=== PATIENT | female | born 1940 | race Caucasian/White ===

== ENCOUNTER → 2016-04-18 | Outpatient (CLI) | payer OTHER ==
[~2016-04-18] VITALS: Ht 157.5 cm; Wt 59.0 kg
[~2016-04-18] MED LIST: ACET325T9 PO; LIDOCAINE 1% / SOD BICARB 8.4% 20 ML VIAL. IJ ONE; LIDOCAINE 2%/EPI 1:100,000 20 ML VIAL. IJ ONE; LOSA25TA4 PO; TRAM-29 PO
[2016-04-18 08:13] VITALS: BP 144/66
--- NOTE | 2016-04-18 11:02 | RAD ---
Indication indeterminate calcifications right breast. Note is made of the screening examination 02/04/2016 and the diagnostic examination 02/17/2016. Indeterminate calcifications were identified on those examinations in the right breast for which biopsy had been recommended. Those images were reviewed. Image guided biopsy was discussed with the patient. The risks of infection and bleeding were outlined. The patient is at the risks associated with the procedure and wished she. The patient was placed prone on the biopsy table. The suspect calcifications were identified and targeted. The skin was prepped and draped in the routine fashion. Local anesthesia was accomplished with 1% lidocaine. Deeper anesthesia was obtained with lidocaine epinephrine. Biopsy probe was introduced. Samples were obtained. Specimen radiograph was performed. 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 A clip was placed at the biopsy site. Post biopsy clip placement images were obtained. No significant residual calcifications persist at the biopsy site. The clip appears appropriately positioned. The patient tolerated the procedure unremarkably. At the completion of the procedure the biopsy site was dressed in the routine fashion and the patient discharged with appropriate instructions. IMPRESSION: Successful stereotactic biopsy suspect calcifications right breast
--- NOTE | 2016-04-18 16:07 | RAD ---
Indication indeterminate calcifications right breast. Note is made of the screening examination 02/04/2016 and the diagnostic examination 02/17/2016. Indeterminate calcifications were identified on those examinations in the right breast for which biopsy had been recommended. Those images were reviewed. Image guided biopsy was discussed with the patient. The risks of infection and bleeding were outlined. The patient is at the risks associated with the procedure and wished she. The patient was placed prone on the biopsy table. The suspect calcifications were identified and targeted. The skin was prepped and draped in the routine fashion. Local anesthesia was accomplished with 1% lidocaine. Deeper anesthesia was obtained with lidocaine epinephrine. Biopsy probe was introduced. Samples were obtained. Specimen radiograph was performed. Abundant signs and displays sales representative microcalcifications were retrieved. A clip was placed at the biopsy site. Post biopsy clip placement images were obtained. No significant residual calcifications persist at the biopsy site. The clip appears appropriately positioned. The patient tolerated the procedure unremarkably. At the completion of the procedure the biopsy site was dressed in the routine fashion and the patient discharged with appropriate instructions. IMPRESSION: Successful stereotactic biopsy suspect calcifications right breast DICTATED and SIGNED BY: TOMASA MADRID MD DATE: 04/18/16 1056 [facility]
--- NOTE | 2016-04-19 16:17 | PATHOLOGY ---
PATHOLOGY REPORT * * * * * * * * FINAL DIAGNOSIS: Breast tissue, right breast core biopsies: - Ancient fibroadenoma, with associated calcifications. - Focal stromal fibrosis and mild duct ectasia. COMMENT: Sections of the right breast core biopsies reveal multiple segments of an ancient fibroadenoma with associated calcifications. The fibroadenoma measures up to 0.5-0.6 cm in greatest dimension on the glass slide. There is no evidence of malignancy. (JPM:mgmickey; d/t: 04/19/16) REPORT ELECTRONICALLY SIGNED BY: Johnie Santos M.D. DATE/TIME: 04/19/2016 16:17 * * * * * * * * GROSS PATHOLOGY: Received in an orange plastic cassette in formalin labeled "Sofía Ba and right breast tissue," are multiple needle cores of yellow-huizar fibrofatty tissue measuring 7.4 x 1.7 x 0.8 cm in aggregate dimensions. The tissue is submitted in its entirety in cassettes A1-A4. The cold ischemic time is 7 minutes. The total formalin fixation time is 10 hours and 47 minutes. (TTL; 04/18/2016) INITIAL CPT CODE(S): A; 84892 Professional services performed [place] [employer] [address] Technical services performed by [facility] at [address] [place] [address] [address] [place] [address]. SPECIMEN(S) RECEIVED: A.Right breast tissue CLINICAL HISTORY: Calcifications PATIENT: SOFÍA BA /AGE: 11 1940 (Age: 76) PATIENT #: [id number] ALT CASE #: SPECIMEN COLLECTION DATE: 04/18/2016 SPECIMEN RECEIVED DATE: 04/18/2016 [facility] - [address] [place] [address] - PHONE: [phone] * * * END OF REPORT * * *
== END | disposition home or self-care (01) ==
LOC: MAMMO 07:28
PROVIDERS: ATTEND Internal Medicine
DX: R92.8 Other abnormal and inconclusive findings on diagnostic imaging of breast (principal); R92.0 Mammographic microcalcification found on diagnostic imaging of breast
CPT/HCPCS: 19085; 77022; C1713; G0206; J3490

== ENCOUNTER → 2017-07-08 | Outpatient (CLI) | payer OTHER | END | disposition home or self-care (01) | LOC: ECHO 13:36 | DX: I27.20 Pulmonary hypertension, unspecified (principal) | CPT/HCPCS: 93306 ==

== ENCOUNTER → 2017-10-22 | Outpatient (CLI) | payer OTHER ==
[2017-10-22] MEDS: REGADENOSON 0.4 MG/5 ML DISP.SYRIN. IV (08:50)
== END | disposition home or self-care (01) ==
LOC: NM 12:35
DX: R00.2 Palpitations (principal); R61 Generalized hyperhidrosis; I10 Essential (primary) hypertension
CPT/HCPCS: 78452; 93017; 96374; 96375; 96376; A9500; J2785

== ENCOUNTER 2018-11-20 04:35 | Emergency (ER) | payer OTHER ==
[~2018-11-20] VITALS: Ht 157.5 cm; Wt 56.7 kg
[~2018-11-20 04:35] MED LIST changes: -LIDOCAINE 1% / SOD BICARB 8.4% 20 ML VIAL. IJ ONE; -LIDOCAINE 2%/EPI 1:100,000 20 ML VIAL. IJ ONE; -LOSA25TA4 PO; +LOSA25TA54 PO; -TRAM-29 PO; +TRAM-48 PO
[2018-11-20] MEDS ORDERED: IV NORMAL SALINE 1000ML BAG 1,000 ML IV ONE (05:30)
--- NOTE | 2018-11-20 05:32 | PHYS DOC ---
Past Medical History Past Medical History: Other Additional Past Medical Histor: Trigeminal nerve, Was HTN and no longer takes medication Past Surgical History: Appendectomy, Cholecystectomy, Other Additional Past Surgical Histo: Back surgery,Trigeminal Neurology,L)eye corrected muscle. Alcohol Use: None Drug Use: None Adult General Chief Complaint Chief Complaint: MULTIPLE COMPLAINTS HPI HPI Patient is a 78 year old female who presents with complaining of not feeling go od. Patient state for the last 2 days she has had generalized weakness and not feeling good and had constant nausea without vomiting. Patient complaining of 4- 5 episodes of loose stool every day and lower abdominal aching and constant pain with radiation to her back. Patient states she had generalized weakness with chills and headache. Patient states her appetite was okay yesterday but today she did not have appetite. Patient denies urinary symptoms, chest pain, sick contact, fever. Review of Systems Review of Systems Constitutional: Denies fever Eyes: Denies change in visual acuity, redness, or eye pain [] HENT: Denies nasal congestion or sore throat [] Respiratory: Denies cough or shortness of breath [] Cardiovascular: No additional information not addressed in HPI [] GI: Reports abdominal pain, nausea, diarrhea [] : Denies dysuria or hematuria [] Musculoskeletal: Denies back pain or joint pain [] Integument: Denies rash or skin lesions [] Neurologic: Denies headache, focal weakness or sensory changes [] Endocrine: Denies polyuria or polydipsia [] All other systems were reviewed and found to be within normal limits, except as documented in this note. Current Medications Current Medications Current Medications Medications (Trade) Dose Ordered Sig/[facility] Start Time Stop Time Status Last Admin Dose Admin Ondansetron HCl (Zofran) 4 mg 1X ONCE 11/20/18 05:45 11/20/18 05:46 DC 11/20/18 05:42 4 MG Sodium Chloride 1,000 ml @ 125 mls/hr 1X ONCE 11/20/18 05:30 11/20/18 13:29 11/20/18 05:42 125 MLS/HR Allergies Allergies Allergies Coded Allergies Type Severity Reaction Last Updated Verified No Known Drug Allergies 09/16/14 No Physical Exam Physical Exam Constitutional: Mild acute distress, non-toxic appearance. [] HENT: Normocephalic, atraumatic, oropharynx dry, no oral exudates, nose normal. [] Eyes: PERRLA, EOMI, conjunctiva normal, no discharge. [] Neck: Normal range of motion, no tenderness, supple, no stridor. [] Cardiovascular:Heart rate regular rhythm, no murmur [] Lungs & Thorax: Bilateral breath sounds clear to auscultation [] Abdomen: Bowel sounds normal, soft, no tenderness, no masses, no pulsatile masses. [] Skin: Warm, dry, no erythema, no rash. [] Back: No tenderness, no CVA tenderness. [] Extremities: No tenderness, no cyanosis, no clubbing, ROM intact, no edema. [] Neurologic: Alert and oriented X 3, normal motor function, normal sensory function, no focal deficits noted. [] Psychologic: Affect normal, judgement normal, mood normal. [] Current Patient Data Vital Signs Vital Signs Date Time Temp Pulse Resp B/P (MAP) Pulse Ox O2 Delivery O2 Flow Rate FiO2 11/20/18 05:48 60 18 154/63 (93) 97 Room Air 11/20/18 04:54 97.7 97.7 Lab Values Laboratory Tests Test 11/20/18 05:20 White Blood Count 7.3 x10^3/uL (4.0-11.0) Red Blood Count 4.47 x10^6/uL (3.50-5.40) Hemoglobin 13.3 g/dL (12.0-15.5) Hematocrit 39.0 % (36.0-47.0) Mean Corpuscular Volume 87 fL (79-100) Mean Corpuscular Hemoglobin 30 pg (25-35) Mean Corpuscular Hemoglobin Concent 34 g/dL (31-37) Red Cell Distribution Width 12.9 % (11.5-14.5) Platelet Count 186 x10^3/uL (140-400) Neutrophils (%) (Auto) 79 % (31-73) H Lymphocytes (%) (Auto) 14 % (24-48) L Monocytes (%) (Auto) 7 % (0-9) Eosinophils (%) (Auto) 1 % (0-3) Basophils (%) (Auto) 0 % (0-3) Neutrophils # (Auto) 5.8 x10^3/uL (1.8-7.7) Lymphocytes # (Auto) 1.0 x10^3/uL (1.0-4.8) Monocytes # (Auto) 0.5 x10^3/uL (0.0-1.1) Eosinophils # (Auto) 0.1 x10^3/uL (0.0-0.7) Basophils # (Auto) 0.0 x10^3/uL (0.0-0.2) Sodium Level 132 mmol/L (136-145) L Potassium Level 3.9 mmol/L (3.5-5.1) Chloride Level 97 mmol/L (98-107) L Carbon Dioxide Level 28 mmol/L (21-32) Anion Gap 7 (6-14) Blood Urea Nitrogen 15 mg/dL (7-20) Creatinine 0.7 mg/dL (0.6-1.0) Estimated GFR (Cockcroft-Gault) 80.9 BUN/Creatinine Ratio 21 (6-20) H Glucose Level 110 mg/dL (70-99) H Calcium Level 9.6 mg/dL (8.5-10.1) Total Bilirubin 0.6 mg/dL (0.2-1.0) Aspartate Amino Transferase (AST) 18 U/L (15-37) Alanine Aminotransferase (ALT) 19 U/L (14-59) Alkaline Phosphatase 46 U/L (46-116) Creatine Kinase 51 U/L (26-192) Troponin I Quantitative < 0.017 ng/mL (0.000-0.055) Total Protein 6.7 g/dL (6.4-8.2) Albumin 3.5 g/dL (3.4-5.0) Albumin/Globulin Ratio 1.1 (1.0-1.7) Lipase 165 U/L (73-393) Laboratory Tests 11/20/18 05:20 Laboratory Tests 11/20/18 05:20 EKG EKG [] Radiology/Procedures Radiology/Procedures [] Course & Med Decision Making Course & Med Decision Making Pertinent Labs and Imaging studies reviewed. (See chart for details) Evaluation of patient in ER showed 78-year-old male patient with complaining of episodes of nausea and diarrhea and abdominal pain for the last 2 days with generalized weakness and headache. Labs and CT abdomen and pelvis is pending. Sign out given to at 0600 for further evaluation and final disposition. Discussed current findings and plan with patient and family, who acknowledge understanding and agreement. Dragon Disclaimer Dragon Disclaimer This electronic medical record was generated, in whole or in part, using a voice recognition dictation system. Departure Departure Impression: Primary Impression: Acute gastroenteritis Referrals: JOSE ALFREDO CASTILLO Jr, MD (PCP) ASHOK SALMON MD Nov 20, 2018 05:32
[2018-11-20 05:40] LABS: CALCIUM 9.6 mg/dL (8.5-10.1); CREATININE 0.7 mg/dL (0.6-1.0)
[2018-11-20 05:41] LABS: GFR 80.9; POTASSIUM 3.9 mmol/L (3.5-5.1)
[2018-11-20] MEDS ORDERED: ONDANSETRON PF 4 MG/2 ML VIAL. IV ONE (05:45)
[2018-11-20 05:47] LABS: ALBUMIN 3.5 g/dL (3.4-5.0); ALBUMIN/GLOBULIN RATIO 1.1 (1.0-1.7); TOTAL BILIRUBIN 0.6 mg/dL (0.2-1.0); TOTAL PROTEIN 6.7 g/dL (6.4-8.2)
[2018-11-20 05:48] LABS: BASO % 0 % (0-3); EOS # 0.1 x10^3/uL (0.0-0.7); EOS % 1 % (0-3); HEMOGLOBIN 13.3 g/dL (12.0-15.5); LYMPH % 14 % (24-48); MEAN CORPUSCULAR HEMOGLOBIN 30 pg (25-35); MEAN CORPUSCULAR HGB CONC 34 g/dL (31-37); MEAN CORPUSCULAR VOLUME 87 fL (79-100); MONO # 0.5 x10^3/uL (0.0-1.1); MONO % 7 % (0-9); NEUT # 5.8 x10^3/uL (1.8-7.7); NEUT % 79 % (31-73); PLATELET COUNT 186 x10^3/uL (140-400); RED BLOOD COUNT 4.47 x10^6/uL (3.50-5.40); RED CELL DISTRIBUTION WIDTH 12.9 % (11.5-14.5); WHITE BLOOD COUNT 7.3 x10^3/uL (4.0-11.0)
[2018-11-20] MEDS ORDERED: CONTRAST GIVEN. MC PRN (06:30)
[2018-11-20] MEDS ORDERED: IOHEXOL 240 MG/ML 50ML VIAL. PO ONE (06:30)
[2018-11-20] MEDS ORDERED: IOHEXOL 300 MG/ML 100ML VIAL. IV ONE (06:30)
[2018-11-20 06:37] LABS: BILIRUBIN,URINE NEGATIVE (NEG); CLARITY,URINE CLEAR; COLOR,URINE YELLOW; NITRITE,URINE NEGATIVE (NEG); PROTEIN,URINE NEGATIVE (NEG-TRACE); UROBILINOGEN,URINE 0.2 mg/dL (0.2 mg/dL)
[2018-11-20 06:44] LABS: BACTERIA,URINE FEW /HPF (0-FEW); HYALINE CASTS, URINE FEW /HPF; SQUAMOUS EPITHELIAL CELL,UR MOD /LPF; WBC,URINE 0 /HPF (0-4)
--- NOTE | 2018-11-20 07:45 | RAD ---
Exam: CT abdomen and pelvis with contrast INDICATION: Nausea, vomiting and weakness TECHNIQUE: Sequential axial images through the abdomen and pelvis obtained following the administration of 75 mL of Omni 300 IV contrast. Sagittal and coronal reformatted images were reconstructed from the axial data and reviewed. Comparisons: CT 11/29/2007 FINDINGS: Heart size is normal. No pericardial effusion. Visualized lung bases are clear. No pleural effusion. Stable hypoattenuating cystic lesion at the left hepatic dome likely representing simple cysts. Otherwise, liver, spleen, pancreas, and adrenals are unremarkable. Gallbladder surgically absent. Mild intrahepatic ductal dilatation, likely biliary reservoir which is stable. Kidneys demonstrate symmetric enhancement. No perinephric inflammation or hydronephrosis. There is 2 mm nonobstructing renal calculus at the lower pole of the right kidney. No ureteral calculi. Bladder is distended and appears thin-walled. Uterus is not enlarged. No abnormal adnexal mass. Diverticulosis probably within the sigmoid colon. Mild bowel thickening noted at the sigmoid colon. Remainder of the large and small bowel are unremarkable. No obstruction. No free intra-abdominal air or fluid. Abdominal aorta has a normal course and caliber. Calcified carotid plaque circumferentially in the infrarenal abdominal aorta. Abdominal vasculature is patent. No enlarged intra-abdominal lymph nodes are identified. No suspicious osseous lesions or acute fractures. IMPRESSION: 1. Diverticulosis of the sigmoid colon with mild bowel wall thickening which may represent mild diverticulitis. 2. Nonobstructing 2 mm calculus at the lower pole of the right kidney. 3. Postsurgical changes cholecystectomy. Exposure: One or more of the following in the visualized dose reduction techniques were utilized for this examination: 1. Automated exposure control 2. Adjustment of the MA and/or KV according to patient size 3. Use of iterative of reconstructive technique Electronically signed by: Abdirizak Larsen MD (11/20/2018 7:42 AM) [facility]
[2018-11-20] MEDS ORDERED: HYDROcodone/APAP 5/325MG 1 TAB TABLET PO ONE (08:00)
[2018-11-20] MEDS ORDERED: SULF1TAB24 PO (08:09)
[2018-11-20 08:11] VITALS: BP 134/65
[2018-11-20] MEDS ORDERED: SMZ/TMP 800/160MG TABLET. PO ONE (08:30)
== END 2018-11-20 08:46 | disposition home or self-care (01) ==
LOC: ER 04:35
DX: K52.9 Noninfective gastroenteritis and colitis, unspecified (principal); Z90.49 Acquired absence of other specified parts of digestive tract; Z90.89 Acquired absence of other organs; Z98.890 Other specified postprocedural states
CPT/HCPCS: 36415; 74177; 80053; 81001; 82550; 83690; 84484; 85025; 96361; 96374; 99285; J2405; J7030; Q9966; Q9967

== ENCOUNTER → 2019-11-25 | Outpatient (CLI) | payer MEDICARE, OTHER ==
[~2019-11-25] MED LIST changes: +SULF1TAB24 PO
--- NOTE | 2019-11-25 13:19 | RAD ---
History: Reason: B/L LEG PAIN / Spl. Instructions: / History: Technique: Ultrasound was utilized to calculate an ankle brachial index. Findings: Right: Right brachial pressure 172 mmHg Right ankle pressure 179 mmHg Right ankle SIENNA 1.0 Left: Left brachial pressure 164 mmHg Left ankle pressure 169 mmHg Left ankle SIENNA is 1.0 Impression: Normal ankle brachial index bilaterally. Electronically signed by: Magdaleno Darnell MD (11/25/2019 1:15 PM) [id number]
== END | disposition home or self-care (01) ==
LOC: US 12:24
PROVIDERS: ATTEND Family Medicine
DX: M79.605 Pain in left leg (principal); M79.604 Pain in right leg
CPT/HCPCS: 93922

== ENCOUNTER 2020-10-08 11:51 | Emergency (ER) | payer MEDICARE ==
--- NOTE | 2020-10-11 08:41 | PHYS DOC ---
Past Medical History Past Medical History: Other Additional Past Medical Histor: Trigeminal nerve, Was HTN and no longer takes medication Past Surgical History: Appendectomy, Cholecystectomy, Other Additional Past Surgical Histo: Back surgery,Trigeminal Neurology,L)eye corrected muscle. Smoking Status: Never Smoker Alcohol Use: None Drug Use: None General Adult EDM: Chief Complaint: LOWER EXT PAIN HPI: HPI: 80-year-old female past medical history significant for hypertension presents the ED with her daughter, (patient consents to his/her/their knowledge and involvement in pts' medical care), with complaints of left buttock pain that radiates down to her left foot for the past 6 days. Reprots Review of Systems: Review of Systems: Constitutional: Denies fever or chills. [] Eyes: Denies change in visual acuity. [] HENT: Denies nasal congestion or sore throat. [] Respiratory: Denies cough or shortness of breath. [] Cardiovascular: Denies chest pain or edema. [] GI: Denies abdominal pain, nausea, vomiting, bloody stools or diarrhea. [] : Denies dysuria. [] Musculoskeletal: Denies back pain or joint pain. [] Integument: Denies rash. [] Neurologic: Denies headache, focal weakness or sensory changes. [] Endocrine: Denies polyuria or polydipsia. [] Lymphatic: Denies swollen glands. [] Psychiatric: Denies depression or anxiety. [] Heart Score: C/O Chest Pain: No Risk Factors: Risk Factors: DM, Current or recent (<one month) smoker, HTN, HLP, family history of CAD, obesity. Risk Scores: Score 0 - 3: 2.5% MACE over next 6 weeks - Discharge Home Score 4 - 6: 20.3% MACE over next 6 weeks - Admit for Clinical Observation Score 7 - 10: 72.7% MACE over next 6 weeks - Early Invasive Strategies Allergies: Allergies: Allergies Coded Allergies Type Severity Reaction Last Updated Verified No Known Drug Allergies 09/16/14 No Physical Exam: PE: Constitutional: Well developed, well nourished, no acute distress, non-toxic appearance. [] HENT: Normocephalic, atraumatic, bilateral external ears normal, oropharynx moist, no oral exudates, nose normal. [] Eyes: PERRLA, EOMI, conjunctiva normal, no discharge. [] Neck: Normal range of motion, no tenderness, supple, no stridor. [] Cardiovascular:Heart rate regular rhythm, no murmur [] Lungs & Thorax: Bilateral breath sounds clear to auscultation [] Abdomen: Bowel sounds normal, soft, no tenderness, no masses, no pulsatile masses. [] Skin: Warm, dry, no erythema, no rash. [] Back: No tenderness, no CVA tenderness. [] Extremities: No tenderness, no cyanosis, no clubbing, ROM intact, no edema. [] Neurologic: Alert and oriented X 3, normal motor function, normal sensory function, no focal deficits noted. [] Psychologic: Affect normal, judgement normal, mood normal. [] EKG: EKG: [] Radiology/Procedures: Radiology/Procedures: [] Course & Med Decision Making: Course & Med Decision Making Pertinent Labs and Imaging studies reviewed. (See chart for details) I was not involved in this patients' care. Chart accidentally assigned to me at shift change. Diaz Disclaimer: Diaz Disclaimer: This electronic medical record was generated, in whole or in part, using a voice recognition dictation system. Departure Departure Impression: Primary Impression: Patient left without being seen Disposition: 07 LEFT WITHOUT BEING SEEN Condition: LEFT WITHOUT BEING SEEN JITENDRA BERMUDEZ DO Oct 11, 2020 08:41
[2020-10-11] MEDS ORDERED: HYDROcodone/APAP 5/325MG 1 TAB TABLET PO ONE (08:45)
[2020-10-11 10:13] LABS: BILIRUBIN,URINE NEGATIVE (NEG); CLARITY,URINE CLEAR; COLOR,URINE YELLOW; NITRITE,URINE NEGATIVE (NEG); PH,URINE 7.5 (<5.0-8.0); PROTEIN,URINE NEGATIVE (NEG-TRACE); UROBILINOGEN,URINE 0.2 mg/dL (0.2 mg/dL)
[2020-10-11 10:29] LABS: AMORPHOUS SEDIMENT,UR PRESENT /HPF; BACTERIA,URINE FEW /HPF (0-FEW)
[2020-10-11] MEDS ORDERED: CARV6.2511 PO (12:31)
== END 2020-10-08 12:05 | disposition left against medical advice (07) ==
LOC: ER 11:51
DX: M79.605 Pain in left leg (principal); Z53.21 Procedure and treatment not carried out due to patient leaving prior to being seen by health care provider
CPT/HCPCS: 73502; 81001

== ENCOUNTER → 2020-10-24 | Outpatient (CLI) | payer MEDICARE ==
[2020-10-12 11:00] VITALS: BP 150/63
[~2020-10-24] MED LIST changes: +CALC625T20 PO; +CARV6.2511 PO; +DEXA4TAB63 PO; +HYDR-2761 PO; +IBUP400T99 PO; +LACT1CAP39 PO; +OXYC-325 PO
--- NOTE | 2020-10-24 14:53 | PDOC1 ---
INITIAL PAIN CONSULT DATE OF SERVICE: DOS: DATE: 10/24/20 TIME: 14:46 CHIEF COMPLAINT: Chief Complaint: Low back and left lower extremity pain HISTORY OF PRESENT ILLNESS: 80-year-old female presents history of pain low back left lower extremity for about 2 months not the result of any specific injury or accident that she is aware of but is beginning worse with time standing walking changing positions awakens her from sleep least once or twice a night patient reports effective bowel bladder control but no incontinence is some increased frequency patient reports does affect her ability to walk and she has a cane that she uses but does not have it with her today. Patient reports she has been using exercise strengthening stretching has had physical therapy in the past she had previous lumbar surgery in 2011 and is doing the physical therapy exercises from that surgery patient reports it helps but only minimally patient is taking hydrocodone with acetaminophen also decrease the pain by about 20% patient reports pain is stabbing and shooting in the leg numb and tingling in the leg as well as aching and cramping in the low back and some cramping in the legs well patient reports is rating the posterior gluteus lateral thigh anterior thigh posterior thigh posterior calf and anterior calf to the ankle and top of the foot but not into the toes. Patient reports disability rating 0-10 10 being the worst is a 10 with him home responsibilities recreation social activity occupation self-care and life support activities specially sleeping. Patient did have an MRI scan lumbar spine showing left hemilaminectomy decompression at L3-4 and at L4-5 circumferential disc bulge with moderate left and mild right neuroforaminal stenosis and mild spinal canal stenosis L5-S1 shows cervical disc bulge with a left subarticular zone disc extrusion with left lateral recess stenosis mild spinal canal stenosis mild left neuroforaminal stenosis. Patient reports a loss of motor function with significant fatigability with walking and standing especially even standing for more than 5 minutes on the left leg PAST MEDICAL HISTORY: PMH: Arthritis, hypertension, irritable bowel syndrome PREVIOUS SURGERIES: Past Surgical Hx: Cholecystectomy, LASEK surgery, balloon decompression for trigeminal neuralgia, appendectomy, lumbar laminectomy 2011 CURRENT MEDICATIONS: Current Meds: Active Scripts Medications Dose Route/Sig Max Daily Dose Days Date Category Dose Instructions Probiotic (Lactobacillus Combination No.4) 1 Each Capsule 1 Each PO DAILY 10/24/20 Reported Fiber Tabs (Calcium Polycarbophil) 625 Mg Tablet 625 Mg PO DAILY 10/24/20 Reported Ibu (Ibuprofen) 400 Mg Tablet 1 Tab PO Q4HRS 5 10/24/20 Reported NEEDED FOR PAIN Hydrocodone-Apap 5-325 (Hydrocodone Bit/Acetaminophen) 1 Tab Tablet 1 Tab PO PRN Q6HRS PRN 10/24/20 Reported Carvedilol (Carvedilol) 6.25 Mg Tablet 6.25 Mg PO BIDWMEALS 10/11/20 Reported ALLERGIES; Allergies: Coded Allergies: No Known Drug Allergies (Unverified , 09/16/14) FAMILY HISTORY: Family Hx: No major medical conditions that she is aware of. SOCIAL HISTORY: Social Hx: Patient is nondrug alcohol does not smoke says any illegal illicit recreational drugs is lives locally in [facility] and is currently retired. REVIEW OF SYSTEMS: ROS: Positive for those items mentioned in history of present illness, all systems are reviewed, otherwise negative ,and are complete full and well-documented on patient's chart. PHYSICAL EXAM: VS: Blood pressures 149/69 pulse 73 respirations 18 temperature 98.6 F weight is 133 pounds height is 5 feet 2 inches PE: PHYSICAL EXAMINATION: GENERAL: The patient is awake, alert, oriented, appropriate, very pleasant in demeanor. HEENT: Shows normocephalic, atraumatic. Extraocular movements are intact and symmetrical. Oral cavity: Mucous membranes moist and pink. NECK: Shows anterior throat supple without palpable lymphadenopathy noted. Swallow reflex symmetrical. CHEST: Shows normal on inspection. Breath sounds are clear bilaterally, no rales rhonchi or wheeze. HEART: Shows S1, S2 clear. No murmurs auscultated. ABDOMEN: Soft, nontender, nondistended, obese. No palpable organomegaly is noted. No rebound or guarding demonstrated. BACK: Shows spine grossly in the midline. Normal-appearing cervical lordotic curvature. There is slightly increased thoracic kyphosis, some minor flattening of the lumbar lordotic curvature. Lumbar paraspinous muscles show symmetrical on inspection, on palpation shows some moderate tenderness diffusely throughout the upper, middle and lower distribution of the paraspinous muscles bilaterally, without specific trigger points, without radiation of pain. The patient has good rotational motion of the lumbar spine, both laterally as well as extension and flexion without significant difficulty. No tenderness over the spinous processes, sacrum or sacroiliac regions. EXTREMITIES: Lower extremities show deep tendon reflexes 1+ in the patellar and tendo calcaneus tendons. Motor exam is 5 on a scale of 5 with right dorsiflexion, extension, quadriceps and hamstring flexion and 4/5 on the left. Peripheral pulses are 1 posterior tibial. No peripheral edema is noted bilaterally. Lower extremities are warm and dry to touch, equal in color and appearance. Straight leg raise noted to be positive on the left at approximately 40 degrees decreased with knee flexion, right side is negative. Gaenslen's and Osvaldo's maneuvers are negative bilaterally as well. The patient is able to stand, stand on toes without significant difficulty but is walking with a favoring gait favoring the left extremity not using any assistive devices to ambulate. SKIN: Shows warm and dry, good turgor. No edema. No sores, rashes or bruising throughout. IMPRESSION: Impression: 80-year-old female with approximate 2-month history increasing pain low back left lower extremity radicular fashion. Lumbar spine MRI scan as noted Arthritis Hypertension Irritable bowel syndrome Plan: Options were discussed with patient including conservative medical management physical therapies interventional techniques. Patient would like to pursue interventional techniques. We discussed a lumbar epidural steroid injection using description as well as anatomical models to describe the procedure. Patient is scheduled for lumbar decompression surgery in approximately 2 weeks and we will need to preauthorize patient for the epidural steroid injection. If able to authorize patient prior to the surgery she would like to proceed with this however if closer to the surgery will have her simply proceed with the surgery and follow-up as necessary. NIKI TURNER MD Oct 24, 2020 14:53
== END | disposition home or self-care (01) ==
LOC: PNCL 13:15
PROVIDERS: ATTEND Anesthesiology
DX: M54.5 Low back pain (principal); M79.605 Pain in left leg; M19.90 Unspecified osteoarthritis, unspecified site; I10 Essential (primary) hypertension; Z90.49 Acquired absence of other specified parts of digestive tract; Z98.890 Other specified postprocedural states; Z79.899 Other long term (current) drug therapy; Z87.440 Personal history of urinary (tract) infections
CPT/HCPCS: G0463

== ENCOUNTER → 2020-10-31 | Outpatient (CLI) | payer MEDICARE ==
[2020-10-12 11:00] VITALS: BP 150/63
[~2020-10-31] MED LIST changes: +CARV3.1210 PO; +OXYC-314 PO
--- NOTE | 2020-10-31 10:56 | EKG ---
[facility] [address] [place] [address] Test Date: 2020-10-31 Test Time: 10:56:35 Pat Name: DALE HOLTER Department: Room: Gender: F Lumber Material Handler: : 1940 Requested By: FEI BHAGAT Order Number: [id number] Reading MD: Jeramie Thompson MD Measurements Intervals [place] Rate: 67 P: 57 CA: 164 QRS: -36 QRSD: 82 T: 23 QT: 376 QTc: 400 Interpretive Statements SINUS RHYTHM LAD Electronically Signed On 10-31-2020 20:29:16 CDT by Jeramie Thompson MD
[2020-10-31 11:06] LABS: ALBUMIN 3.4 g/dL (3.4-5.0); ALBUMIN/GLOBULIN RATIO 1.1 (1.0-1.7); CALCIUM 8.8 mg/dL (8.5-10.1); CREATININE 0.6 mg/dL (0.6-1.0); GFR 96.2; POTASSIUM 4.3 mmol/L (3.5-5.1); TOTAL BILIRUBIN 0.5 mg/dL (0.2-1.0); TOTAL PROTEIN 6.5 g/dL (6.4-8.2)
--- NOTE | 2020-11-02 12:32 | PREOP HP ---
DATE OF SERVICE: 11/04/2020 PREOPERATIVE HISTORY AND PHYSICAL HISTORY OF PRESENT ILLNESS: The patient is a pleasant 80-year-old who was seen in the hospital a few weeks ago for severe back and left leg pain. Her problem started a few weeks prior to that abruptly. She notes pain in her lower back, which radiates to her leg, buttock, posterior thigh and leg. She had surgery in the lumbar spine about 10 years ago by me and did very well. Her pain can reach 10/10. She says her pain is 5/10 with medications. She has difficulty walking. She says her pain is constant. She takes hydrocodone to help with her pain. She has not noticed weakness. The problem is pain. There is no problem on the right side. CURRENT MEDICATIONS: Hydrocodone, fiber, probiotic, Coreg. PAST MEDICAL HISTORY: Hypertension. PAST SURGICAL HISTORY: Cholecystectomy, LASIK surgery, lumbar surgery at L3-4 in 2007, appendectomy. FAMILY HISTORY: Noncontributory. SOCIAL HISTORY: Nonsmoker. REVIEW OF SYSTEMS: A 12-point review of systems was performed and is noncontributory except that mentioned above. PHYSICAL EXAMINATION: GENERAL: Alert, pleasant, in no acute distress. HEENT: Head normocephalic, atraumatic. SKIN: Warm and dry. Well healed lumbar incision. MUSCULOSKELETAL: Lumbar paraspinal muscle bulk is normal, restricted range of motion of the lumbar spine, [id number] tenderness of the lower lumbar spine with palpation, normal range of motion of the lower extremities bilaterally. EXTREMITIES: No clubbing, cyanosis or edema. NEUROLOGIC: Alert and oriented x 3. Strength is 5/5 in the lower extremities bilaterally. Sensory was intact to light touch in the lower extremities bilaterally except for decreased sensation in the entire left foot, reflexes were present and symmetric in the lower extremities bilaterally except for an absent left ankle jerk, positive straight leg raising on the left, negative straight leg raising on a right, antalgic gait favoring her left leg. IMAGING: I reviewed a lumbar MRI scan. On that study, there is a large left lateral sequestered disk measuring 1 cm in greatest diameter. The disk occupies the left subarticular zone and extruded inferiorly compressing the left S1 nerve root. There were also postoperative changes at L3-4 on the left. ASSESSMENT AND PLAN: The patient has a significant left lumbar radiculopathy. She has difficulty ambulating. She would strongly like to go ahead with surgery. She has been resting and receiving steroids and has not improved significantly. I did speak with her about the surgery including the technique, the risk and the expected postoperative course. She understands and would like to proceed. SANTO DR: Silvestre TID: [id number]
== END ==
LOC: SURGPAT 09:57
PROVIDERS: ATTEND Neurological Surgery
DX: Z01.818 Encounter for other preprocedural examination (principal); M51.17 Intervertebral disc disorders with radiculopathy, lumbosacral region
CPT/HCPCS: 36415; 80053; 87641; 93005

== ENCOUNTER 2020-11-04 07:21 | Day surgery (SDC) | payer MEDICARE ==
[2020-10-31 10:39] VITALS: BP 203/78
[2020-10-31 10:48] VITALS: BP 182/79
[~2020-11-04] VITALS: Ht 157.5 cm; Wt 60.0 kg
[~2020-11-04 07:21] MED LIST changes: +BUPIVACAINE-EPI 0.5%-1:200000 MPF 30 ML VIAL. ONE; +GELATIN SPONGE SIZE 100. ONE; +HYDROmorphone 2 MG/ML VIAL IVP PRN; +IV RINGERS,LACTATED 1000ML 1,000 ML IV SCH; +KETOROLAC 60 MG/2 ML VIAL. ONE; +MORPHINE SULFATE 2 MG/ML INJ. IVP PRN; +PROCHLORPERAZINE 10 MG/2 ML VIAL. IVP PRN; +THROMBIN TOPICAL 20,000 UNIT SPRAY.SYRN KIT TP ONE; +fentaNYL PF VIAL 100 MCG/2 ML VIAL IVP PRN
[2020-11-04] MEDS ORDERED: PROPOFOL 50 ML IV ONE (07:59)
[2020-11-04] MEDS ORDERED: fentaNYL PF VIAL 100 MCG/2 ML VIAL ONE (07:59)
[2020-11-04] MEDS ORDERED: PHENYLEPHRINE 10 MG/ML VIAL. ONE (07:59)
[2020-11-04] MEDS ORDERED: REMIFENTANIL 1 MG VIAL. IV ONE (07:59)
[2020-11-04] MEDS ORDERED: LIDOCAINE 2% PF 5 ML VIAL. ONE (07:59)
[2020-11-04] MEDS ORDERED: ROCURONIUM 50 MG/5 ML VIAL. ONE (07:59)
[2020-11-04] MEDS ORDERED: PROPOFOL 10 MG/ML (20ML) VIAL. IV ONE (07:59)
[2020-11-04] MEDS ORDERED: 0.9 % SODIUM CHLORIDE 20 ML VIAL. IJ ONE (07:59)
[2020-11-04] MEDS ORDERED: MIDAZOLAM HCL/PF 2 MG/2 ML VIAL. ONE (08:11)
[2020-11-04] MEDS ORDERED: SEVOFLURANE > 120 MINUTES. IH ONE (09:32)
[2020-11-04] MEDS ORDERED: NEOSTIGMINE METHYLSULFATE 5 MG/5 ML SYRINGE. ONE (09:43)
[2020-11-04] MEDS ORDERED: GLYCOPYRROLATE 1 MG/5 ML VIAL. ONE (09:43)
[2020-11-04] MEDS ORDERED: HYDR-2761 PO (10:54)
[2020-11-04] MEDS ORDERED: DOCU-109 PO (10:54)
--- NOTE | 2020-11-04 10:57 | DISCH ---
DISCHARGE INSTRUCTIONS Condition on Discharge Condition on Discharge: Stable Activity After Discharge Activity Instructions for Disc: Activity as tolerated, Avoid exertion Bathing Instructions: Shower-keep dressing dry, No Tub Bath until see Lifting Instructions after Dis: No heavy lifting, No pulling or pushing, Do not lift >10 pounds Exercise Instruction after Dis: Progress as tolerated Driving Instructions after Dis: Do not drive Weight Bearing Status after Di: As tolerated Diet after Discharge Diet after Discharge: Regular Additional Diet Restrictions: resume regualr diet Diet Texture: Regular Liquid Texture: Thin Liquid Swallowing Supervision: None needed Wound Incision Care Wound/Incision Care: Ice to area for comfort Other wound/incision instructi: may remove dressing in 48 hurs if dry, no soaking Checks after Discharge Checks after discharge: Check blood press - daily Contacting the [facility] after DC Call your doctor for: Concerns you may have Follow-Up Follow up with: Dr. Bhagat's nurse in 2 weeks [phone] Treatment/Equipment after DC Adaptive Equipment Issued: None FEI BHAGAT MD Nov 04, 2020 10:57
[2020-11-04 11:41] VITALS: BP 140/62
--- NOTE | 2020-11-04 12:02 | OP ---
DATE OF SURGERY: 11/04/2020 PREOPERATIVE DIAGNOSIS: Herniated lumbar disk, left L5-S1. POSTOPERATIVE DIAGNOSIS: Herniated lumbar disk, left L5-S1. OPERATIONS PERFORMED: Hemilaminotomy and microdiskectomy, L5-S1, left. The operation was done with EMG monitoring, SSEP monitoring, fluoroscopy, microscopic dissection. RESIDENT CARE MANAGER: RUFINA Chino, assisted with the surgery. She assisted with the microdecompression and diskectomy as well as the closure. OPERATIVE INDICATIONS: The patient is a pleasant 80-year-old who developed acutely very severe pain in her back and left leg. She was disabled because of this pain and strongly wanted surgery. In the morning of surgery, however, she did report some improvement, but she had a markedly positive straight leg raising and she has continued taking narcotics and was at strict bed rest. We discussed the options. She wanted to go ahead with surgery and we proceeded. DESCRIPTION OF PROCEDURE: Following general endotracheal anesthesia, the patient was positioned prone on Pollo table. The lumbar region was prepped and draped in standard fashion. DULCE hose and AV impulse boots were applied for DVT prophylaxis. The microscope was draped, fluoroscopy was draped into the field. Monitoring was established. Ancef 2 grams was given less than 1 hour prior to initiation of surgery. Using fluoroscopic guidance, a midline incision was made directly over the L5-S1 interspace. I dissected down to skin and subcutaneous tissue, reflected the paraspinal muscles, placed a [place] microdisk retractor, brought in the microscope, and using a high-speed air drill, I burred down a hemilaminotomy. I trimmed away the ligamentum flavum, exposed the dura and the exiting root. I performed a generous partial foraminotomy. I then gently retracted the root medially. It was markedly compressed and tight. There was a large subligamentous disk herniation. I gradually teased this out and removed multiple disk fragments, and as I worked, the nerve became very free. I explored carefully. I performed a generous diskectomy as well with the micropituitary. There were no retained fragments. I irrigated copiously. Hemostasis was excellent throughout the case. I then removed the retractors and irrigated with antibiotic solution. I then irrigated again and closed the wound with absorbable suture and the skin was closed with a 4-0 subcuticular stitch. I was quite pleased with the surgery. ALESHIA DR: Cyril TID: [id number]
--- NOTE | 2020-11-08 13:17 | PATHOLOGY ---
[facility] Accession Number: [id number] . 01 Material submitted: . vertebral column - LUMBAR DISC AND DECOMPRESSION . 01 Clinical history: . LUMBAR HERNIATED DISC AND RADICULOPATHY LUMBAR MICRODISCECTOMY L5-S1 . 02 Diagnosis: Segments of fibrocartilaginous, adipose, and skeletal muscle tissue and bone, lumbar disc and decompression: - Degenerative changes of fibrocartilaginous tissue. (JPM:luis manuel; 11/08/2020) S 11/08/2020 0930 Local . 02 Comment: There is no evidence of an acute inflammatory process or malignancy. (JPM:luis manuel; 11/08/2020) . 02 Electronically signed: . Johnie Santos MD, Pathologist NPI- [id number] . 01 Gross description: . Received in formalin labeled "Sofía Johnson, lumbar disc and decompression" is a 4.0 x 3.5 x 1.5 cm aggregate of cervantes-brown, rubbery and gritty soft tissue and bone fragments. Presales Consultant tissue is submitted in cassette A1 following decalcification. ([facility]; 11/06/2020) [facility] 11/08/2020 0929 Local . 02 Pathologist provided ICD-10: M51.36 . 02 CPT . 229558, [id number] Specimen Comment: A courtesy copy of this report has been sent to [phone], [phone] Specimen Comment: [id number] Specimen Comment: Report sent to / DR Boucher Performed at: [address], [place], [place] [id number] MD Stephen Sanabria MD Phone: [phone] Performed at: 02 [facility] [address] [place], [place] [id number] MD Johnie Santos MD Phone: [phone]
== END 2020-11-04 12:26 | disposition home or self-care (01) ==
LOC: SURG 07:21
PROVIDERS: ATTEND Neurological Surgery
DX: M51.36 Other intervertebral disc degeneration, lumbar region (principal); I10 Essential (primary) hypertension; M19.90 Unspecified osteoarthritis, unspecified site; Z90.49 Acquired absence of other specified parts of digestive tract; Z98.890 Other specified postprocedural states; Z79.899 Other long term (current) drug therapy
CPT/HCPCS: 63030; A4213; A4364; A4556; A4930; A6254; A6258; J0690; J1885; J2370; J2704; J2710; J3010; J3490; 76000; A4222; J2250

== ENCOUNTER → 2021-06-23 | Day surgery (SDC) | payer MEDICARE ==
[~2021-06-23] VITALS: Ht 157.5 cm; Wt 57.0 kg
[~2021-06-23] MED LIST changes: -BUPIVACAINE-EPI 0.5%-1:200000 MPF 30 ML VIAL. ONE; +DOCU-109 PO; -GELATIN SPONGE SIZE 100. ONE; +HYDROmorphone 2 MG/ML INJ. IVP PRN; -HYDROmorphone 2 MG/ML VIAL IVP PRN; -KETOROLAC 60 MG/2 ML VIAL. ONE; +PROPOFOL 10 MG/ML (20ML) VIAL. IV ONE; -THROMBIN TOPICAL 20,000 UNIT SPRAY.SYRN KIT TP ONE
[2021-06-23 07:01] VITALS: BP 153/84
[2021-06-23 08:20] VITALS: BP 143/77
== END | disposition home or self-care (01) ==
LOC: ENDOS 06:19
PROVIDERS: ATTEND Internal Medicine Gastroenterology
DX: K92.1 Melena (principal); K64.0 First degree hemorrhoids; K57.30 Diverticulosis of large intestine without perforation or abscess without bleeding; K57.32 Diverticulitis of large intestine without perforation or abscess without bleeding; K63.89 Other specified diseases of intestine; I10 Essential (primary) hypertension; E78.00 Pure hypercholesterolemia, unspecified; M19.90 Unspecified osteoarthritis, unspecified site; Z87.440 Personal history of urinary (tract) infections; Z90.49 Acquired absence of other specified parts of digestive tract; Z98.890 Other specified postprocedural states; Z79.899 Other long term (current) drug therapy
CPT/HCPCS: 45378; J2704